=== PATIENT | female | born 1990 | race Caucasian/White ===

== ENCOUNTER → 2016-07-09 | Outpatient (CLI) | payer BC ==
[2016-07-09 18:45] LABS: URINE APPEARANCE CLEAR (CLEAR); URINE BILIRUBIN NEG (NEG); URINE COLOR YELLOW; URINE EPITHELIAL CELL AUTO >30 /lpf (0-5); URINE NITRITE NEG (NEG); URINE PH 7.5 (4.5-7.5); URINE SPECIFIC GRAVITY 1.009 (1.000-1.030); UROBILINOGEN NEG (NEG)
[2016-07-09 18:50] LABS: MANUAL MICROSCOPIC REQUIRED? NO; REVIEW REQ? NO
== END | disposition home or self-care (01) ==
LOC: C.LABSPEC 17:56
PROVIDERS: ATTEND Obstetrics & Gynecology
DX: Z34.03 Encounter for supervision of normal first pregnancy, third trimester (principal)

== ENCOUNTER → 2016-07-09 | Outpatient (CLI) | payer BC ==
[2016-07-09 16:48] LABS: HEMATOCRIT 30.8 % (37-47)
[2016-07-09 19:34] LABS: GTGD 50 Grams
== END | disposition home or self-care (01) ==
LOC: C.LAB1850 14:55
PROVIDERS: ATTEND Obstetrics & Gynecology
DX: Z34.03 Encounter for supervision of normal first pregnancy, third trimester (principal)

== ENCOUNTER → 2016-09-03 | Outpatient (CLI) | payer BC | END | disposition home or self-care (01) | LOC: C.LABSPEC 17:33 | PROVIDERS: ATTEND Obstetrics & Gynecology | DX: Z34.03 Encounter for supervision of normal first pregnancy, third trimester (principal) ==

== ENCOUNTER 2016-09-24 16:41 | Inpatient (IN) | payer BC ==
[~2016-09-24] VITALS: Ht 157.5 cm; Wt 67.5 kg
[2016-09-24] MEDS ORDERED: LACTATED RINGER'S 1000ML 1,000 ML IV PRN (17:31)
[2016-09-24] MEDS ORDERED: LACTATED RINGER'S 1000ML 1,000 ML IV SCH (17:31)
[2016-09-24 17:55] LABS: HEMATOCRIT 35.6 % (37-47); MEAN CELL VOLUME 94.7 fL (80-100); MEAN CORPUSCULAR HEMOGLOBIN 32.7 pg (25-34); MEAN CORPUSCULAR HGB CONC 34.6 g/dl (32-36); MEAN PLATELET VOLUME 9.9 fL (7.4-10.4); PLATELET COUNT 208 K/uL (130-400); RED BLOOD COUNT 3.76 M/uL (4.2-5.4); WHITE BLOOD COUNT 11.05 K/uL (4.8-10.8)
[2016-09-24] MEDS ORDERED: EpHEDrine SULFATE INJ 50 MG/ML AMP ONE (18:09)
[2016-09-24] MEDS ORDERED: FENTANYL 2MCG/ML ROPIV 1.25MG/ML 100ML BAG EPI ONE (18:09)
[2016-09-24] MEDS ORDERED: BUPIVACAINE 0.25% 30 ML VIAL ONE (18:09)
[2016-09-24] MEDS ORDERED: FENTANYL CITRATE INJ 50 MCG/1 ML 2 ML VIAL ONE ×2 (18:10→22:18)
[2016-09-24 18:36] VITALS: Ht 157.5 cm; Wt 67.5 kg
[2016-09-24] MEDS ORDERED: LACTATED RINGER'S 1000ML 500 ML IV PRN (19:23)
[2016-09-24] MEDS ORDERED: NALOXONE HCL INJ 1 MG in SODIUM CHLORIDE 0.9% 1000ML 1,000 ML IV PRN (19:23)
[2016-09-24] MEDS ORDERED: NALOXONE HCL INJ 0.4 MG/1 ML VIAL/CARP IV PRN (19:30)
[2016-09-24] MEDS ORDERED: NALBUPHINE HCL INJ 10 MG/ML AMP IV PRN (19:30)
[2016-09-24] MEDS ORDERED: DiphenhydrAMINE HCL 50 MG/ML VIAL IV PRN (19:30)
[2016-09-24] MEDS ORDERED: FENTANYL 2MCG/ML ROPIV 1.25MG/ML 100ML BAG EPI PRN (19:30)
[2016-09-24] MEDS ORDERED: EpHEDrine SULFATE INJ 50 MG/ML AMP IV PRN (19:30)
[2016-09-24] MEDS ORDERED: LIDOCAINE HCL 2% 2 ML VIAL (20MG/ML) ONE ×3 (22:18→22:19)
[2016-09-25] MEDS ORDERED: OXYTOCIN 30 UNITS/500ML NSS IV ONE (02:07)
[2016-09-25] MEDS ORDERED: LACTATED RINGER'S 1000ML 1,000 ML IV SCH (02:32)
[2016-09-25] MEDS ORDERED: ACETAMINOPHEN 325 MG TAB PO PRN (02:45)
[2016-09-25] MEDS ORDERED: BENZOCAINE 20% AER SPR 82.5 GM CAN EXT PRN (02:45)
[2016-09-25] MEDS ORDERED: OXYTOCIN 30 UNITS/500ML NSS IV PRN (02:45)
[2016-09-25] MEDS ORDERED: SUPERCREAM 0.870 % 15GM JAR EXT PRN (02:45)
[2016-09-25] MEDS ORDERED: HYDROCORTISONE ACETATE 25 MG SUPP PR PRN (02:45)
[2016-09-25] MEDS ORDERED: DIPHTHERIA/TETANUS/PERTUSSIS 0.5 ML SYR/VIAL IM. ONE (02:45)
[2016-09-25] MEDS ORDERED: OXYCODONE/ACETAMINOPHEN 5-325 TAB PO PRN (02:45)
[2016-09-25] MEDS ORDERED: LANOLIN OINT EXT PRN ×2 (02:45)
[2016-09-25] MEDS: IBUPROFEN 600 MG TAB PO PRN ×5 (03:46→23:23)
[2016-09-25 05:30] VITALS: BP 106/70; PULSE 114; TEMP 36.7; O2SAT 95
--- NOTE | 2016-09-25 05:38 | DELIVERY SUMMARY ---
DATE OF OPERATION: 09/25/2016 DATE OF DELIVERY: 09/25/2016. PREOPERATIVE DIAGNOSIS: 1. Pearl intrauterine at term. 2. Onset of labor. 3. Group B strep negative. POSTOPERATIVE DIAGNOSIS: Same. PROCEDURE: Spontaneous vaginal delivery and repair of second degree and right labial laceration. SURGEON: Dr. Marion. MARKETING OPERATIONS ASSISTANT: None. ESTIMATED BLOOD LOSS: 600 mL. FINDINGS: in the ROP position. Placenta is spontaneous and intact with a 3-vessel cord with meconium noted at delivery. Right labial laceration and second-degree midline perineal laceration, both repaired in the usual fashion. COMPLICATIONS: None. DISPOSITION: Stable in labor and delivery. DESCRIPTION: Jigna is a 25-year-old G1, P0, who presented in active labor with spontaneous rupture of membranes. The patient was provided with an epidural for pain management and then managed expectedly. She reached to complete dilation with an urge to push and was coached through pushing. Of note, once pushing began, the was showing variable decelerations and a nuchal cord was suspected; however; recovery was always normal and the variability always remained reassuring. Additionally, from the time the patient began , movements were obvious with rotational movements of the head indicating that there were wiggles and kicks as movements continuing to occur. For these reasons, the status was always considered acceptably reassuring during the second stage of labor. The patient did ultimately deliver the head of the after a prolonged phase and the position was found to be right occiput posterior. The infant rested to it such that the left shoulder was anterior. The shoulders delivered with no difficulty after reduction of the expected nuchal cord. The remainder of the infant followed with no difficulty and was placed on the maternal abdomen and then the cord was then doubly clamped and cut by the father of the baby. Suction was provided for meconium and the was noted to make respiratory efforts and move all 4 extremities equally immediately upon delivery. The placenta then delivered spontaneously and was noted to be intact with a 3-vessel cord. There was a right labial laceration that was repaired using 3-0 Vicryl in a running locked manner. There was additionally a second-degree midline perineal laceration that was repaired using Vicryl suture in the typical manner with a crown suture to rebuild the perineal body. At the completion of the repair, the fundus was firm, well-contracted and lochia was minimal. Of note, lochia was brisk at times during repair, but did always respond to IV Pitocin drip as well as by manual massage. Mother and infant are currently in stable condition having tolerated the delivery well. I attest to the content of the Intraoperative Record and any orders documented therein. Any exception s are noted below.
--- NOTE | 2016-09-25 07:14 | Anesthesia Procedure Note ---
Anesthesia Epidural Removal Nt Date & Time Sep 25, 2016 at 07:13 Vital Signs Pain Intensity: 3.0 Vital Signs Past 12 Hours Date Time Temp Pulse Resp B/P (MAP) Pulse Ox O2 Delivery O2 Flow Rate FiO2 09/25/16 05:30 36.7 114 20 106/70 (82) 95 Room Air Notes Mental Status: alert / awake / arousable, participated in evaluation Nausea / Vomiting: adequately controlled Pain: adequately controlled Airway Patency, RR, SpO2: stable & adequate BP & HR: stable & adequate Hydration State: stable & adequate Neuraxial Anesthesia: was administered, sensory block is resolved Anesthetic Complications: no major complications apparent, pt satisfied with anesthetic care Epidural: removed without complications, with tip intact
[2016-09-25 07:16] VITALS: BP 119/81; PULSE 96; TEMP 36.5; O2SAT 98
[2016-09-25] MEDS: DOCUSATE SODIUM 100 MG CAP PO SCH ×2 (08:08→19:46)
[2016-09-25] MEDS: PRENATAL VITAMIN TAB PO SCH (08:12)
[2016-09-25 11:18] VITALS: BP 124/68; PULSE 92; TEMP 37; O2SAT 97
[2016-09-25 15:50] VITALS: BP 109/77; PULSE 94; TEMP 36.5; O2SAT 96
[2016-09-25 19:35] VITALS: BP 90/59; PULSE 93; TEMP 36.7
[2016-09-25 23:20] VITALS: BP 104/68; PULSE 87; TEMP 36.6
--- NOTE | 2016-09-26 07:44 | OB/GYN Progress Note ---
SELF STORAGE MANAGER Progress Note Date of Service Sep 26, 2016. Subjective conversation w/ patient Ambulation: ambulating normally Voiding: no voiding problems Passing Gas: Yes Diet Tolerance: Regular Diet Lochia: Small Feeding Type: Breast Feeding (bottle supplement) Notes: The patient was seen and examined at bedside. Pt received Ibuprofen 600mg at 8pm yesterday. Is having some issues with breast feeding and she is supplementing with bottle. Pt was teary at bedside and apologetic for being teary. present at bedside. 30min prior the pt had a normal mood. Is interacting well with . Patient is resting comfortably in bed. Denies having any pain. Eating and urinating well. Plan of care was described to the patient and all questions were answered. Review of Systems Constitutional: No fever, No chills Respiratory: No cough, No sputum, No shortness of breath, No dyspnea on exertion Cardiac: No chest pain Abdomen: No pain, No nausea, No vomiting Female : No dysuria Objective Vital Signs Date Time Temp Pulse Resp B/P (MAP) Pulse Ox O2 Delivery O2 Flow Rate FiO2 09/25/16 23:20 36.6 87 18 104/68 (80) Room Air 09/25/16 23:20 Room Air 09/25/16 19:35 36.7 93 18 90/59 (69) Room Air 09/25/16 15:50 96 Room Air 09/25/16 15:50 36.5 94 18 109/77 (88) 96 Room Air 09/25/16 11:18 37.0 92 20 124/68 (86) 97 Room Air 09/25/16 08:15 Room Air Physical Exam General Appearance: WELL-APPEARING, WD/WN, NO APPARENT DISTRESS Respiratory/Chest: chest non-tender, lungs clear, normal breath sounds, no respiratory distress, no accessory muscle use Cardiovascular: regular rate, rhythm, no edema, no gallop, no JVD, no murmur Abdomen: normal bowel sounds, non tender, soft, no organomegaly, no pulsatile mass Fundus: Firm, Non-Tender, Relation to Umbilicus (1cm above the umbilicus) Extremities: normal range of motion, non-tender, normal inspection, no pedal edema, no calf tenderness Laboratory Results Last 24 Hours Test 09/26/16 06:44 Assessment and Plan Post- Day Number: 1 Continue Routine Care: 25F G1PO s/p at 39+1, delivered a baby girl. - GBS negative. - Blood type: A+ - vital signs reviewed and stable. will continue regular vital sign checks. - continue regular diet. - encourage breast feeding w bottle supplementation, network systems consultant is on board. - ambulation and SCDs for DVT prophylaxis - Hemoglobin 12.3-->Pending, pt reports lochia is small - Control pain with PO pain medications - Mood: will continue to monitor patient along with pt bonding with baby, crying was likely 2/2 to big life events and hormonal changes after delivery. - Continue routine post care. Resident Physician Supervision Note: I interviewed and examined the patient. Discussed with Dr. Godoy and agree with findings and plan as documented in the note. Any exceptions or clarifications are listed here: dOING WELL, ROUTINE CARE. Documented By: Carol Borjas Resident Involvement: Resident Care Provided Care Provided: OB Delivery
[2016-09-26 08:00] VITALS: BP 118/77; PULSE 79; TEMP 36.4
[2016-09-26 08:39] LABS: HEMATOCRIT 27.6 % (37-47)
[2016-09-26] MEDS: DOCUSATE SODIUM 100 MG CAP PO SCH ×2 (09:28→19:53)
[2016-09-26] MEDS: PRENATAL VITAMIN TAB PO SCH (09:28)
[2016-09-26] MEDS: IBUPROFEN 600 MG TAB PO PRN (09:28)
--- NOTE | 2016-09-26 11:29 | Discharge Instructions ---
Discharge Instructions Date of Service Sep 26, 2016. Admission Reason for Admission: Check Labor Discharge Discharge Diagnosis / Problem: Vaginal Delivery Discharge Goals Goal(s): Routine recovery after delivery Medications Continue Dispensed Medications: supercream, dermaplast, tucks, lansinoh Activity Recommendations Activity Limitations: as noted below . Instructions / Follow-Up Instructions / Follow-Up ACTIVITY RECOMMENDATIONS: * Gradual return to full activity over the next 2-3 weeks. * No lifting - nothing heavier than baby over the next 2-3 weeks. * Do not engage in vigorous exercise, sexual activity or sports until cleared by your physician. * Do not drive or operate any motorized equipment until cleared by your physician. * You may shower/bathe daily. MEDICATIONS: For discomfort or pain, you may use Acetaminophen (Tylenol), Ibuprofen (Advil), or Naproxen (Aleve) following the package directions. For constipation you may use Colace following the package directions. BREAST CARE: If you are not breast feeding: * Wear a supportive bra 24 hours a day for one to two weeks. * Avoid stimulating your breasts and nipples as much as possible during the first few weeks after delivery. * When taking a shower, have the warm water hit your back, not breasts. * When your breasts feel full, apply ice packs. Usually three to four times a day helps ease the discomfort. * Take a mild pain medication (Tylenol / Motrin) when you are uncomfortable. If breast feeding: * Use breast milk to lubricate nipples. Lansinoh cream may be used for sore nipples. You do not need to remove cream prior to breast feeding. If using a different brand of cream, check the label for directions regarding removal of cream prior to nursing. * Wear a supportive bra. * If having problems with breasts or breast feeding, call a hearing consultant or your health care provider. EPISIOTOMY CARE: After delivery, if you have an episiotomy (stitches), the following steps will ease discomfort and aid healing. * For the first 24 hours after delivery, place ice packs next to your episiotomy to help reduce swelling. * After the first 24 hour-period, sitz baths, either portable or in the tub, are suggested. A shower with a shower arm sprayed over the episiotomy may be comforting. * Martha care should be done after each voiding and bowel movement. Squirt warm water from a plastic bottle over the perineum (region of the body between the anus and urinary opening) and pat dry. * Use Dermoplast to ease discomfort. Shake container. [place] directly over the episiotomy. Place a Tucks on a clean sanitary pad next to your episiotomy. SPECIAL CARE INSTRUCTIONS: When you are discharged from the hospital, it is important for you to follow the instructions listed below: * During the first week at home, you should be able to care for yourself and your baby. In addition, the usual light household activities are encouraged. * Limit your activities to the way you feel. Do not try to clean the house or move furniture. Be sensible. * If you actively engage in sports and have done so up until the time of your delivery, you may resume these activities as soon as you feel able. This may take up to one month or even longer. Use good judgment. * Continue to take your vitamins for at least six weeks after the of your baby. * Your diet need not be limited unless you were on a special diet before your delivery. Breast-feeding mothers need around 2500 calories per day and at least 64-80 ounces of fluid per day (8 to 10 glasses). * You should eat foods from the four major food groups. Crash diets or fad diets are to be avoided. Eating lean meats, fresh fruits and vegetables, low-fat dairy products, high fiber foods and a regular exercise program, will help you get back to your pre- weight without putting your health at risk. * Constipation is sometimes a problem after delivery. Take a mild laxative as needed. If breast feeding, Milk of Magnesia is acceptable to use. You may use a suppository or Fleets enema if no episiotomy. * A daily shower or tub bath is suggested. Be sure to thoroughly and gently dry the perineum. * A bloody vaginal discharge will usually continue until around four weeks post . A small amount of bleeding may continue for as long as six weeks. Vaginal discharge changes from the bright red bleeding after delivery to pink then brownish and finally yellowish-pink before becoming white and disappearing. * Bleeding may increase with activity. Your first period may come in 4-8 weeks. If you are breast feeding, your period may be delayed even longer. * [place] (sex) can begin whenever both you and your partner feel comfortable and do not have any form of genital infection. It is recommended that you wait at least six weeks for internal and external healing to occur. If you have questions, please talk to your health care practitioner. A condom should be used to prevent infection and . * Foreplay, gentle intercourse and lubrication is very important the first several times to prevent pain. A water-based lubricant such as K-Y jelly or Astroglide may be used. * If you have RH negative blood and your baby is RH positive, you will receive RHOGAM by injection prior to discharge. The nurse will give you a card to keep with you that has the date and place that you received RHOGAM after delivery. * During your care, you had a Rubella screen done to check for the presence of rubella antibodies in your blood. If your test was negative, you will receive a Rubella vaccine prior to discharge. This vaccine may cause a fever, soreness at the injection site and flu-like symptoms. If these symptoms persist, notify your health care practitioner. is not advised for one month after a Rubella vaccine. * Verbalizes understanding of car seat law as reviewed with patient nursing. * Car Seat hand-out given and reviewed with patient by nursing. * Shaken baby information reviewed with patient by nursing. Call you doctor if: * Heavy bleeding (saturating several pads an hour) or passing clots the size of your fist. * A fever >101 degrees F (38.3 degrees C) on two occasions four hours apart and /or chills. * Unusual pain in the pelvic or vaginal areas. * "Baby Blues" lasting longer than two weeks. If you have any questions or concerns, call your health care practitioner at . FOLLOW UP VISIT: * Please call the office at to schedule a 6 week examination. It is important you keep this appointment. It is important for you to make arrangements for either yearly or twice yearly check-ups thereafter. Current Hospital Diet Patient's current hospital diet: Gluten Free Diet Discharge Diet Recommended Diet: Regular Diet Pending Studies Studies pending at discharge: no Medical Emergencies . Who to Call and When: Medical Emergencies: If at any time you feel your situation is an emergency, please call 911 immediately. . Non-Emergent Contact Non-Emergency issues call your: Primary Care Provider . . "Provider Documentation" section prepared by Tyler Craig. . VTE Core Measure Inpt VTE Proph given/why not?: SCD's
[2016-09-26 15:45] VITALS: BP 112/77; TEMP 37.2; O2SAT 99
[2016-09-27] VITALS: BP 95/58; PULSE 81; TEMP 37; O2SAT 96
[2016-09-27 07:31] VITALS: BP 111/73; PULSE 84; TEMP 36.3; O2SAT 99
[2016-09-27] MEDS: PRENATAL VITAMIN TAB PO SCH (07:50)
[2016-09-27] MEDS: DOCUSATE SODIUM 100 MG CAP PO SCH (07:50)
[2016-09-27] MEDS: IBUPROFEN 600 MG TAB PO PRN (07:53)
--- NOTE | 2016-09-27 08:56 | OB/GYN Progress Note ---
PIVOT END POLISHER Progress Note Date of Service Sep 27, 2016. Subjective conversation w/ patient Ambulation: ambulating normally Voiding: no voiding problems Passing Gas: Yes Diet Tolerance: Clear Liquids Lochia: Small Feeding Type: Breast Feeding Notes: The patient was seen and examined at bedside. No acute overnight events. Pt got Ibuprofen today at 9am. Patient is resting comfortably in bed. Denies having any pain. Eating and urinating well. Plan of care was described to the patient and all questions were answered. Review of Systems Constitutional: No fever, No chills Respiratory: No cough, No sputum, No shortness of breath Cardiac: No chest pain, No edema Abdomen: No pain, No nausea, No vomiting, No diarrhea Female : No dysuria Objective Vital Signs Date Time Temp Pulse Resp B/P (MAP) Pulse Ox O2 Delivery O2 Flow Rate FiO2 09/27/16 07:31 36.3 84 18 111/73 (86) 99 Room Air 09/27/16 00:00 37.0 81 18 95/58 (70) 96 Room Air 09/27/16 00:00 Room Air 09/26/16 15:45 37.2 16 112/77 (89) 99 Room Air 09/26/16 15:45 99 Room Air Physical Exam General Appearance: WELL-APPEARING, WD/WN, NO APPARENT DISTRESS Respiratory/Chest: chest non-tender, lungs clear, normal breath sounds, no respiratory distress, no accessory muscle use Cardiovascular: regular rate, rhythm, no edema, no gallop, no JVD, no murmur Abdomen: normal bowel sounds, non tender, soft, no organomegaly, no pulsatile mass Fundus: Firm, Non-Tender, Relation to Umbilicus (at the umbilicus) Extremities: normal range of motion, non-tender, normal inspection, no pedal edema, no calf tenderness Assessment and Plan Post- Day Number: 2 Continue Routine Care: 25F G1PO s/p at 39+1, delivered a baby girl. - GBS negative. - Blood type: A+ - vital signs reviewed and stable. will continue regular vital sign checks. - continue regular diet. - encourage breast feeding w bottle supplementation - ambulation and SCDs for DVT prophylaxis - Hemoglobin 12.3-->9.3, lochia is small - Control pain with PO Ibuprofen. - Mood: excellent, no crying, bonding appropriately. - Follow up with OB in 6 weeks. Discharge instructions reviewed. - Continue routine post care. Resident Physician Supervision Note: I was present with Dr. Craig during the history and exam. I discussed the case with the resident and agree with the findings and plan as documented in the note. Any exceptions or clarifications are listed here: [None] Documented By: Malika Dumont Resident Involvement: Resident Care Provided Care Provided: [facility]
[2016-09-27 10:30] VITALS: BP_DIAS 73; PULSE 84; TEMP 36.3
== END 2016-09-27 11:15 | disposition home or self-care (01) | DRG 775 ==
LOC: C.LD 16:41 → C.OPB 16:41 → C.LD 17:37 → C.OBG 09-25 05:11
PROVIDERS: ADMIT Obstetrics & Gynecology; ATTEND Obstetrics & Gynecology
PROC: 0UQMXZZ Repair Vulva, External Approach (ICD-10-PCS; principal; 2016-09-25)
PROC: 0KQM0ZZ Repair Perineum Muscle, Open Approach (ICD-10-PCS; principal; 2016-09-25)
PROC: 10E0XZZ Delivery of Products of Conception, External Approach (ICD-10-PCS; principal; 2016-09-25)
DX: O99.52 Diseases of the respiratory system complicating childbirth (principal); J45.909 Unspecified asthma, uncomplicated; O70.1 Second degree perineal laceration during delivery; O70.0 First degree perineal laceration during delivery; O76 Abnormality in fetal heart rate and rhythm complicating labor and delivery; O69.81X0 Labor and delivery complicated by cord around neck, without compression, not applicable or unspecified; O77.0 Labor and delivery complicated by meconium in amniotic fluid; O99.62 Diseases of the digestive system complicating childbirth; K90.0 Celiac disease; Z37.0 Single live birth; Z3A.39 39 weeks gestation of pregnancy

== ENCOUNTER → 2017-01-23 | Outpatient (CLI) | payer OTHER, BC ==
--- NOTE | 2017-01-23 15:54 | DIAGNOSTIC IMAGING REPORT ---
R WRIST MIN 3 VIEWS ROUTINE CLINICAL HISTORY: RIGHT WRIST PAIN COMPARISON: None. DISCUSSION: No fractures or dislocations are visualized. There are no erosive or destructive changes. IMPRESSION: Unremarkable conventional radiographic evaluation of the right wrist. Electronically signed by: Ismael Foster M.D. 01/23/2017 3:53 PM Dictated Date/Time: 01/23/2017 3:52 PM
== END | disposition home or self-care (01) ==
LOC: C.RAD1850 15:26
PROVIDERS: ATTEND Nurse Practitioner Family
DX: M25.531 Pain in right wrist (principal)

== ENCOUNTER → 2017-05-09 | Outpatient (CLI) | payer BC | END | disposition home or self-care (01) | LOC: C.LABBFT 12:04 | PROVIDERS: ATTEND Internal Medicine | DX: R63.4 Abnormal weight loss (principal) ==

== ENCOUNTER 2019-04-30 08:19 | Inpatient (IN) ==
[2019-04-30] MEDS ORDERED: OXYTOCIN 30 UNITS/500 ML BAG IV PRN ×3 (10:00→14:30)
--- NOTE | 2019-04-30 10:07 | History & Physical Report ---
Date of Service April 30, 2019 Assessment & Plan (1) Supervision of normal intrauterine in multigravida: -Tracing category 2 with accelerations and variability -Patient in early active labor -Patient requests epidural -Anesthesia notified -Anticipate vaginal delivery History of Present Illness Chief Complaint: Labor check Primary Care Provider: WILLIAM PCP The patient is a 28-year-old 2 para 1 with an EDC of 11 May at 38+ weeks gestational age, who presents to labor and delivery for labor evaluation. Patient states that her contractions began in intensity approximately 0330 hrs. on day of admission. Patient denied rupture of membranes or vaginal bleeding. The patient has had a benign course. Her blood type is A+, antibody negative, with Alyson immune, hepatitis B negative, she declined cystic fibrosis, SMA, and maternal serum AFP, she had a negative cell free DNA screen, she had a normal 1 hour Glucola x2, and a negative third trimester beta strep culture. Allergies Allergy/AdvReac Type Severity Reaction Status Date / Time gluten Allergy Intermediate GI SYMPTOMS Verified 04/30/19 08:34 No Known Drug Allergies Allergy none Verified 04/30/19 08:34 Home Medications Home Medications Medication Instructions Recorded Confirmed Type PNV cmb#95-ferrous fumarate-FA 1 tab PO DAILY 04/30/19 04/30/19 History [] Patient History Social History (Updated 11/11/18 @ 13:22 by Yani Hunter) Preferred Language: Ghanaian Manager Brand Required: No Beliefs That Will Affect Care: None marital status: Current Living Situation: Spouse and Family Other Information That Helps Us Care for You: No Feels Safe at Home: Yes Safety Concerns: Feels Safe At This Time Smoking Status: Never smoker Second Hand Exposure: No ; Hx Alcohol Use: No Hx Substance Use: No Physical Exam Constitutional: WD/WN, vitals as above Respiratory: Auscultation: lungs clear to auscultation bilaterally Cardiovascular: RRR, no murmur, no edema Extremities: no calf tenderness Gastrointestinal (Abdomen): Abdomen: Gravid, vertex, positive heart tones, positive palpable contractions, estimated weight of 7 and half pounds Genitourinary: OB Exam Monitor Tracing: + category II and + normal FHT variability Cervix: 3-4 cm / 100%/-2 station/bulging membranes Results & Data Vital Signs (Past 12 Hours) Vital Signs Temp Pulse Resp BP 04/30/19 08:56 97.3 F L 16 04/30/19 08:33 77 114/77 Coding Level of Care Code None Diagnoses Supervision of normal intrauterine in multigravida Z34.80
[2019-04-30] MEDS: LACTATED RINGER'S 1,000 ML IV PRN ×2 (10:12→11:10)
[2019-04-30 10:24] LABS: Hematocrit (blood only) 35.5 % (37-47); Hemoglobin 12.2 g/dL (12.0-16.0); Mean Corpuscular Hemoglobin 31.9 pg (25-34); Mean Corpuscular Volume 92.7 fL (80-100); Mean Platelet Volume 10.8 fL (7.4-10.4); Platelet Count 182 K/uL (130-400); RDW Coefficient of Variation 13.7 % (11.5-14.5); RDW Standard Deviation 45.7 fL (36.4-46.3); Red Blood Count 3.83 M/uL (4.2-5.4); White Blood Count 9.93 K/uL (4.8-10.8)
[2019-04-30 10:29] LABS: Mean Corpuscular Hgb Conc 34.4 g/dL (32-36)
[2019-04-30] MEDS ORDERED: fentaNYL citrate 100 MCG/2 ML VIAL ONE (10:35)
[2019-04-30] MEDS ORDERED: fentaNYL 2MCG/ML ROPIV 1.25MG/ML 100 ML BAG EPI ONE (10:35)
[2019-04-30] MEDS ORDERED: ePHEDrine sulfate 50 MG/ML AMP ONE (10:35)
[2019-04-30] MEDS ORDERED: BUPIVACAINE 0.25% 30 ML VIAL ONE (10:35)
--- NOTE | 2019-04-30 11:08 | Anesthesiology Consultation ---
Date of Service April 30, 2019 Assessment & Plan Chart Review Chart Review: Acceptable Risk for Labor Epidural Consults Requested none History Height/Weight Height: 5 ft 2 in Weight: 63.957 kg Allergies Allergy/AdvReac Type Severity Reaction Status Date / Time gluten Allergy Intermediate GI SYMPTOMS Verified 04/30/19 08:34 No Known Drug Allergies Allergy none Verified 04/30/19 08:34 Medications Home Medications Medication Instructions Recorded Confirmed Last Taken PNV cmb#95-ferrous fumarate-FA 1 tab PO DAILY 04/30/19 04/30/19 Unknown [] Active Medications Generic Name Dose Route Start Last Admin Trade Name Freq PRN Reason Stop Dose Admin Lactated Ringer's 1,000 mls @ 125 mls/hr 04/30/19 10:00 04/30/19 10:12 Lr IV 05/02/19 09:59 999 mls/hr .Q8H PRN Administration L&D Protocol Protocol Past Medical History Medical History Acquired deviated nasal septum Acute appendicitis Acute appendicitis Breast mass in female Hematochezia Herpes simplex History of anemia History of asthma (Resolved) Hx of migraines Hx of temporomandibular joint disorder Murmur Past Family History Family History Grandmother (Maternal) No problems noted. Grandmother Heart disease Grandmother (Paternal) Heart disease Breast cancer Diabetes Hypertension Father Asthma Grandfather (Maternal) Colorectal cancer Hypertension Mother Diabetes Past Surgical History Surgical History S/P appendectomy S/P nasal septoplasty S/P wisdom tooth extraction Social History Smoking Status: Never smoker Hx Alcohol Use: No Hx Substance Use: No substance use type: does not use Physical Exam Vital Signs Last Vital Signs Temp 36.3 C L 04/30/19 08:56 Pulse 78 04/30/19 11:05 Resp 16 04/30/19 08:56 BP 100/58 L 04/30/19 11:07 Pulse Ox 100 04/30/19 11:04 Testing Laboratory Results 04/30/19 10:07
[2019-04-30] MEDS ORDERED: NALBUPHINE HCL INJ 10 MG/ML AMP IV PRN (11:13)
[2019-04-30] MEDS ORDERED: NALOXONE HCL 1 MG in SODIUM CHLORIDE 0.9% 1000ML 1,000 ML IV PRN (11:13)
[2019-04-30] MEDS ORDERED: DiphenhydrAMINE HCL 50 MG/ML VIAL IV PRN (11:13)
[2019-04-30] MEDS ORDERED: ePHEDrine sulfate 50 MG/ML AMP IV PRN (11:13)
[2019-04-30] MEDS ORDERED: NALOXONE HCL 0.4 MG/1 ML VIAL/CARP IV PRN (11:13)
[2019-04-30] MEDS ORDERED: fentaNYL 2MCG/ML ROPIV 1.25MG/ML 100 ML BAG EPI PRN (11:13)
--- NOTE | 2019-04-30 11:59 | Labor Progress Brief Note ---
Date of Service April 30, 2019 Subjective Reason For Note: Routine Evaluation comfortable with epidural Assessment & Plan (1) Supervision of normal intrauterine in multigravida: - tracing Cat II - comfortable with epidural - AROM, clear - ctx's spaced after epidural - will start pitocin augmentation Physical Exam Gastrointestinal (Abdomen): EFW 7 lbs, ctx's q 5 minutes Genitourinary: 4-5/100/0, AROM clear Results & Data Vital Signs (Past 12 Hours) Vital Signs Temp Pulse Resp BP Pulse Ox 04/30/19 11:54 74 98 04/30/19 11:53 80 91/50 L 04/30/19 11:49 84 97 04/30/19 11:48 86 99/63 L 04/30/19 11:44 74 97 04/30/19 11:43 80 101/62 04/30/19 11:39 76 20 111/71 98 04/30/19 11:34 73 98 04/30/19 11:32 74 20 100/65 04/30/19 11:31 66 20 114/72 04/30/19 11:29 78 98 04/30/19 11:28 81 20 103/63 04/30/19 11:26 74 20 111/66 04/30/19 11:24 69 20 104/64 100 04/30/19 11:22 77 20 113/69 04/30/19 11:20 74 20 105/64 04/30/19 11:19 82 100 04/30/19 11:18 69 20 114/65 04/30/19 11:14 77 20 102/67 100 04/30/19 11:09 78 100 04/30/19 11:07 82 20 100/58 L 04/30/19 11:05 78 20 104/59 L 04/30/19 11:04 77 100 04/30/19 11:03 77 20 101/56 L 04/30/19 11:01 72 20 109/64 04/30/19 10:59 78 20 120/73 100 04/30/19 10:57 79 20 115/71 04/30/19 10:54 62 100 04/30/19 10:49 62 100 04/30/19 10:44 71 100 04/30/19 10:37 68 18 119/79 04/30/19 08:56 97.3 F L 16 04/30/19 08:33 77 114/77 Coding Level of Care Code None Diagnoses Supervision of normal intrauterine in multigravida Z34.80
[2019-04-30] MEDS ORDERED: SUPERCREAM 0.870% 15 GM JAR EXT PRN (14:30)
[2019-04-30] MEDS ORDERED: LACTATED RINGER'S 1,000 ML IV SCH (14:30)
[2019-04-30] MEDS ORDERED: BENZOCAINE 20% AER SPR 82.5 GM CAN EXT PRN (14:30)
[2019-04-30] MEDS ORDERED: DIPHTHERIA/TETANUS/PERTUSSIS 0.5 ML SYR/VIAL IM ONE (14:30)
[2019-04-30] MEDS ORDERED: HYDROCORTISONE ACETATE 25 MG SUPP PR PRN (14:30)
[2019-04-30] MEDS ORDERED: ACETAMINOPHEN 325 MG TAB PO PRN (14:30)
[2019-04-30] MEDS ORDERED: OXYCODONE/ACETAMINOPHEN 5mg/325mg TAB PO PRN (14:30)
--- NOTE | 2019-04-30 14:35 | Delivery Summary ---
Vaginal Delivery Summary Date of Service April 30, 2019 Vaginal Delivery Summary DIAGNOSES: 1. Pearl intrauterine at 38w3d gestation. 2. Spontaneous onset of labor. 3. Group B Streptococcus Neg. PROCEDURE: Spontaneous vaginal delivery and repair of R labial laceration. SURGEON: Sania Marion MD. SURGEON/PRESIDENT: None. ESTIMATED BLOOD LOSS: 250 mL. COMPLICATIONS: None. PLACENTA: Spontaneous and intact with a 3-vessel cord. DISPOSITION: Stable to labor and delivery. DESCRIPTION: The patient pushed well and brought the head to in OA position. The infant's head was allowed to deliver with contraction force and no further active pushing, with the perineum protected during this time. The shoulders delivered easily with a maternal pushing effort. There was no nuchal cord. The right shoulder was anterior. The shoulders and body delivered without any difficulty, and the was placed on the maternal abdomen. It was vigorous and moving all extremities, and making respiratory efforts. The cord was doubly clamped by the MD and then cut by the FOB. The placenta delivered spontaneously and was noted to be intact and with a 3VC. The cervix, vagina and perineum were examined and were found to have a small R labial sep aration, at the apex of the pre-existing labial separation. This was repaired with 4-0 vicryl. The fundus was firm and lochia minimal immediately after delivery.
--- NOTE | 2019-04-30 16:13 | Anesthesia Procedure Note ---
Date of Service April 30, 2019 Anesthesia Post Epidural Note Vital Signs Vital Signs: Temp Pulse Resp BP Pulse Ox 36.4 C L 83 18 130/70 99 04/30/19 14:59 04/30/19 15:59 04/30/19 14:59 04/30/19 15:59 04/30/19 14:54 Pain Intensity Abdomen: Pain Intensity: 5 Notes Mental Status: alert / awake / arousable Nausea / Vomiting: adequately controlled Pain: adequately controlled Airway Patency, RR, SpO2: stable & adequate BP & HR: stable & adequate Hydration State: stable & adequate Neuraxial Anesthesia: was administered and sensory block is resolving Anesthetic Complications: no major complications apparent and Pt Satisfied with anesthetic care Epidural: Removed without complications and With tip intact
[2019-04-30] MEDS: DOCUSATE SODIUM 100 MG CAP PO SCH (20:05)
[2019-04-30] MEDS: IBUPROFEN 600 MG TAB PO PRN (20:05)
[2019-05-01] MEDS: IBUPROFEN 600 MG TAB PO PRN (06:00)
--- NOTE | 2019-05-01 06:53 | Obstetrical Progress Note ---
Date of Service May 01, 2019 Assessment & Plan (1) Status post vaginal delivery: Jigna is a 28 yo on PPD 1 after at 38w - GBS -, Blood Type A+, Rubella immune -Vitals reviewed and WNL -patient is doing clinically well Patient recovering normally. - After discharge will have [address] Quevedo. Supervising Physician Co-Signing Physician Notes Resident Physician Supervision Note: I was present with during the history and exam. I discussed the case with the resident and agree with the findings and plan as documented in the note. Any exceptions or clarifications are listed here: D/C instructions reviewed Documented By: Devante Quevedo Jr, MD, FACOG Subjective Ambulation: ambulating normally Voiding: no voiding problems Passing Gas:: Yes Diet Tolerance:: regular diet Lochia:: moderate Feeding Type:: breast feeding Review of Systems Constitutional: no fever, no chills and no sweats Eyes: no worsening vision Respiratory: no cough and no dyspnea Cardiovascular: no chest pain, no palpitations, no edema and no calf pain Gastrointestinal: no nausea and no vomiting Genitourinary: no dysuria and no urinary frequency Neurologic: no headache(s) Physical Exam Constitutional: WD/WN, vitals as above no acute distress Respiratory: normal respiratory effort, lungs clear to auscultation does not use accessory muscles Auscultation: no crackles, no rales, no rhonchi, no wheezes and no pleural rub Cardiovascular: Rate/Rhythm: regular rate and regular rhythm Heart Sounds: normal S1 and normal S2; no gallop, no murmur and no cardiac rub Extremities: no calf tenderness and no pedal edema Gastrointestinal (Abdomen): Inspection/Auscultation: normal bowel sounds; abdomen not distended Percussion/Palpation: abdomen soft Genitourinary: Uterus: fundus firm, palpable 1 cm below the umbilicus Results & Data Vital Signs (Past 12 Hours) Vital Signs Temp Pulse Resp BP Pulse Ox 05/01/19 03:05 36.4 C L 73 14 118/74 97 04/30/19 23:00 36.6 C 69 16 100/63 96 04/30/19 20:45 36.8 C 72 14 114/71 98 Resident Activity Tracking Resident Involvement: Resident Care Provided Care Provided: OB Delivery
[2019-05-01 07:10] LABS: Hematocrit (blood only) 31.7 % (37-47); Mean Corpuscular Hemoglobin 32.7 pg (25-34); Mean Corpuscular Hgb Conc 34.7 g/dL (32-36); Mean Corpuscular Volume 94.3 fL (80-100); Mean Platelet Volume 10.8 fL (7.4-10.4); Platelet Count 152 K/uL (130-400); RDW Standard Deviation 48.3 fL (36.4-46.3); Red Blood Count 3.36 M/uL (4.2-5.4); White Blood Count 9.95 K/uL (4.8-10.8)
[2019-05-01] MEDS: DOCUSATE SODIUM 100 MG CAP PO SCH ×2 (07:45→20:31)
[2019-05-01] MEDS: PRENATAL VITAMIN 1 TAB PO SCH (07:45)
--- NOTE | 2019-05-02 06:08 | Obstetrical Progress Note ---
Date of Service May 02, 2019 Assessment & Plan (1) Status post vaginal delivery: Jigna is a 28 yo on PPD 2 after at 38w - GBS -, Blood Type A+, Rubella immune -Vitals reviewed and WNL -patient is doing clinically well Discharge instructions reviewed - After discharge will have 6 week followup with . Supervising Physician Co-Signing Physician Notes I have reviewed the resident's note and examined the patient myself, and agree with the note above. Subjective Ambulation: ambulating normally Voiding: no voiding problems Passing Gas:: Yes Diet Tolerance:: regular diet Lochia:: mild Feeding Type:: breast feeding Review of Systems Constitutional: no fever, no chills and no sweats Eyes: no worsening vision Respiratory: no cough and no dyspnea Cardiovascular: no chest pain, no palpitations, no edema and no calf pain Gastrointestinal: no nausea and no vomiting Genitourinary: no dysuria and no urinary frequency Neurologic: no headache(s) Physical Exam Constitutional: WD/WN, vitals as above no acute distress Respiratory: normal respiratory effort, lungs clear to auscultation does not use accessory muscles Auscultation: no crackles, no rales, no rhonchi, no wheezes and no pleural rub Cardiovascular: Rate/Rhythm: regular rate and regular rhythm Heart Sounds: normal S1 and normal S2; no gallop, no murmur and no cardiac rub Extremities: no calf tenderness and no pedal edema Gastrointestinal (Abdomen): Inspection/Auscultation: normal bowel sounds; abdomen not distended Percussion/Palpation: abdomen soft Genitourinary: Uterus: fundus firm, palpable 2 cm below the umbilicus Results & Data Vital Signs (Past 12 Hours) Vital Signs Temp Pulse Resp BP Pulse Ox 05/01/19 23:00 36.6 C 59 L 16 122/77 99 05/01/19 19:25 36.5 C 66 16 128/91 97 Resident Activity Tracking Resident Involvement: Resident Care Provided Care Provided: OB Delivery
[2019-05-02] MEDS: PRENATAL VITAMIN 1 TAB PO SCH (08:32)
[2019-05-02] MEDS: DOCUSATE SODIUM 100 MG CAP PO SCH (08:33)
== END 2019-05-02 11:52 | disposition home or self-care (01) | DRG 807 ==
LOC: OPB 08:19 → 4S1 08:22 → 4S2 16:55